=== PATIENT | female | born 1970 | race Caucasian/White ===

== ENCOUNTER 2017-10-13 21:55 | Emergency (ER) | payer SELFPAY ==
[~2017-10-13] VITALS: Ht 170.2 cm; Wt 73.0 kg
[~2017-10-13 21:55] MED LIST: CITA10TA84; CYCL-319 PO; HYDR-3498 PO; IBUP400T22 PO; OMEP40CA6 PO
[2017-10-13 22:05] VITALS: Ht 170.2 cm; Wt 73.0 kg
== END 2017-10-13 23:46 | disposition left against medical advice (07) ==
LOC: FTE 21:55
DX: Z53.21 Procedure and treatment not carried out due to patient leaving prior to being seen by health care provider (principal)

== ENCOUNTER 2017-12-05 06:30 | Day surgery (SDC) | END 2017-12-06 12:51 | disposition home or self-care (01) ==

== ENCOUNTER 2018-05-01 08:01 | Day surgery (SDC) | END 2018-05-01 18:00 | disposition home or self-care (01) ==